=== PATIENT | female | born 1935 | race Caucasian/White ===

== ENCOUNTER 2021-02-25 17:12 | Emergency (ER) | payer MEDICARE ==
[~2021-02-25] VITALS: Ht 152.4 cm; Wt 61.0 kg
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
--- NOTE | 2021-02-25 18:10 | NUR ---
PT TO CT
--- NOTE | 2021-02-25 19:00 | NUR ---
PT ABLE TO AMBULATE WITH MILD PAIN TO RIGHT UPPER THIGH. ER MD NOTIFIED.
[2021-02-25 19:30] VITALS: BP 160/81
[2021-02-25] MEDS ORDERED: AMOXICILLIN/CLAV 875-125MG TABLET PO ONE (19:30)
--- NOTE | 2021-02-25 19:30 | NUR ---
DRESSINGS PLACED TO BILATERAL SHINS
[2021-02-25] MEDS ORDERED: AMOXICILLIN/CLAV 875-125MG TABLET ONE (19:54)
--- NOTE | 2021-02-25 20:06 | NUR ---
DISCHARGE INSTRUCTIONS REVIEWED WITH PT. ALL QUESTIONS ANSWERED AT THIS TIME.
== END 2021-02-25 20:18 | disposition home or self-care (01) ==
LOC: ED 19:42
DX: S70.01XA Contusion of right hip, initial encounter (principal); W01.0XXA Fall on same level from slipping, tripping and stumbling without subsequent striking against object, initial encounter; Y93.89 Activity, other specified; Y92.410 Unspecified street and highway as the place of occurrence of the external cause; Y99.8 Other external cause status
CPT/HCPCS: 99284